=== PATIENT | male | born 1980 | race Caucasian/White ===

== ENCOUNTER 2025-02-28 12:23 | Emergency (ER) | payer BC ==
[2025-02-28] MEDS ORDERED: Ketorolac Tromethamine 30 MG (1 mL) VIAL ONE (13:33)
[2025-02-28 13:54] LABS: #Basophils 0.07 10x3/uL (0.0-0.2); #Eosinophils 0.12 10x3/uL (0.0-0.5); #Monocytes 0.29 10x3/uL (0.0-1.1); #Neutrophils 3.08 10x3/uL (1.5-8.4); %Basophils 1.4 % (0.0-2.0); %Eosinophils 2.4 % (0.0-6.0); %Lymphocytes 28.1 % (18.0-47.0); %Monocytes 5.8 % (0.0-10.0); %Neutrophils 61.7 % (40.0-75.0); Hematocrit 42.2 % (38.8-50.0); Hemoglobin 14.6 g/dL (13.5-17.5); Mean Corpuscular Hemoglobin 31.6 pg (27.0-33.0); Mean Corpuscular Volume 91.3 fL (81.2-95.1); Platelet Count 249 10x3/uL (150-450); Red Blood Cell (RBC) Count 4.62 10x6/uL (4.32-5.72); White Blood Cell (WBC) Count 4.99 10x3/uL (3.5-10.5)
[2025-02-28 13:57] LABS: Glucose, Urine (Dipstick) Normal (Negative); Leukocyte Negative (Negative); Protein, Urine (Dipstick) Negative (Neg-Trace); Specific Gravity, Urine 1.025 (1.005-1.030)
[2025-02-28 14:04] LABS: Bacteria/HPF Rare-Few HPF (None Seen); CAUTI Indications for Culture Dysuria,urgency,freq; RBC/HPF None Seen HPF (0-3); WBC/HPF None Seen HPF (0-3)
[2025-02-28 14:05] LABS: Urine Culture Reflex No No
[2025-02-28 14:09] LABS: ALT (SGPT) 50 U/L (Less than 45); AST (SGOT) 35 U/L (11-34); Albumin 4.3 g/dL (3.1-4.5); Alkaline Phosphatase 68 U/L (40-110); Anion Gap 16 mmol/L (10-20); BUN (Urea Nitrogen) 10 mg/dL (8.9-20.6); Bilirubin, Total 0.8 mg/dL (0.3-1.2); Calc. Creatinine Clearance 0 mL/min (70-130); Calcium 9.1 mg/dL (7.8-10.44); Carbon Dioxide 21 mmol/L (22-29); Chloride 106 mmol/L (98-107); Globulin 3.3 g/dL (2.4-3.5); Glucose 96 mg/dL (70-105); Potassium 3.8 mmol/L (3.5-5.1); Sodium 139 mmol/L (136-145)
== END 2025-02-28 14:50 | disposition home or self-care (01) ==
LOC: CSHERS 12:23
DX: R10.9 Unspecified abdominal pain (principal); R74.01 Elevation of levels of liver transaminase levels; F17.290 Nicotine dependence, other tobacco product, uncomplicated
CPT/HCPCS: 74176; 80053; 81001; 85025; 96374; J1885

== ENCOUNTER 2025-03-10 10:58 | Emergency (ER) | payer BC ==
[~2025-03-10 10:58] MED LIST: Iopamidol 370 76% 100 ML VIAL ONE
[2025-03-10 11:27] LABS: #Basophils 0.06 10x3/uL (0.0-0.2); #Eosinophils 0.21 10x3/uL (0.0-0.5); #Monocytes 0.55 10x3/uL (0.0-1.1); #Neutrophils 2.49 10x3/uL (1.5-8.4); %Basophils 1.1 % (0.0-2.0); %Eosinophils 3.7 % (0.0-6.0); %Lymphocytes 41.4 % (18.0-47.0); %Monocytes 9.7 % (0.0-10.0); %Neutrophils 43.7 % (40.0-75.0); Hematocrit 44.2 % (38.8-50.0); Hemoglobin 15.4 g/dL (13.5-17.5); Mean Corpuscular Hemoglobin 31.5 pg (27.0-33.0); Mean Corpuscular Volume 90.4 fL (81.2-95.1); Platelet Count 238 10x3/uL (150-450); Red Blood Cell (RBC) Count 4.89 10x6/uL (4.32-5.72); White Blood Cell (WBC) Count 5.68 10x3/uL (3.5-10.5)
[2025-03-10 11:40] LABS: ALT (SGPT) 42 U/L (Less than 45); AST (SGOT) 48 U/L (11-34); Albumin 4.5 g/dL (3.1-4.5); Alkaline Phosphatase 70 U/L (40-110); Anion Gap 16 mmol/L (10-20); BUN (Urea Nitrogen) 12 mg/dL (8.9-20.6); Bilirubin, Total 0.8 mg/dL (0.3-1.2); Calc. Creatinine Clearance 0 mL/min (70-130); Calcium 9.9 mg/dL (7.8-10.44); Carbon Dioxide 23 mmol/L (22-29); Chloride 104 mmol/L (98-107); Globulin 3.6 g/dL (2.4-3.5); Glucose 112 mg/dL (70-105); Potassium 3.6 mmol/L (3.5-5.1); Sodium 139 mmol/L (136-145)
[2025-03-10 11:42] LABS: Acetaminophen Less than 10 mcg/mL (Less than 10); Salicylate Less than 8.0 mg/dL (Less than 8.0)
[2025-03-10 11:46] LABS: Troponin I Less than 0.010 ng/mL (< 0.028)
[2025-03-10 12:33] LABS: Troponin I Less than 0.010 ng/mL (< 0.028)
[2025-03-10] MEDS ORDERED: Aspirin Chewable 81 MG TAB ONE (12:41)
== END 2025-03-10 14:10 | disposition home or self-care (01) ==
LOC: CSHERS 10:58
DX: H53.8 Other visual disturbances (principal); H57.02 Anisocoria; R29.810 Facial weakness; F17.210 Nicotine dependence, cigarettes, uncomplicated; F17.290 Nicotine dependence, other tobacco product, uncomplicated
CPT/HCPCS: 36415; 36416; 70450; 70496; 70498; 70551; 80053; 80307; 84484; 85025; 85730; 93005; 96374; J2060; Q9967